=== PATIENT | female | born 1985 | race African-American/Black ===

== ENCOUNTER 2016-11-30 00:41 | Emergency (ER) | payer SELFPAY ==
[~2016-11-30] VITALS: Ht 165.1 cm; Wt 53.1 kg
[2016-11-30] MEDS ORDERED: IV D5LR 1,000 ML IV ONE (01:35)
[2016-11-30] MEDS ORDERED: DICYCLOMINE HCL 20 MG/2 ML AMPUL IM SCH (01:45)
[2016-11-30] MEDS ORDERED: ONDANSETRON 4 MG/2 ML VIAL IV ONE (01:45)
[2016-11-30] MEDS ORDERED: ONDANSETRON 4 MG/2 ML VIAL ONE (01:49)
[2016-11-30 02:03] LABS: CALCIUM 9.3 mg/dL (8.5-10.1); CREATININE 0.8 mg/dL (0.6-1.3); POTASSIUM 3.5 mmol/L (3.5-5.1)
[2016-11-30] MEDS ORDERED: LORAZEPAM 2 MG/1 ML VIAL IV ONE (02:15)
[2016-11-30] MEDS ORDERED: HYDROMORPHONE 1 MG/1 ML DISP.SYRIN IV ONE (02:15)
[2016-11-30] MEDS ORDERED: DICYCLOMINE HCL 10 MG/5 ML UDC LIQ PO ONE (02:15)
--- NOTE | 2016-11-30 02:18 | NUR ---
all meds administed/labs drawn-sent/iv fluids admistered, pt positioned for comfort.
[2016-11-30] MEDS ORDERED: HYDROMORPHONE 1 MG/1 ML DISP.SYRIN ONE (02:21)
[2016-11-30] MEDS ORDERED: LORAZEPAM 2 MG/1 ML VIAL ONE (02:21)
[2016-11-30] MEDS ORDERED: DICYCLOMINE HCL 10 MG/5 ML UDC LIQ ONE (02:22)
--- NOTE | 2016-11-30 03:01 | NUR ---
Patient discharged to home in stable conditon. Written and verbal after care instructions given. Patient verbalizes understanding of instructions.
== END 2016-11-30 03:12 | disposition home or self-care (01) ==
LOC: ER 00:46
DX: R11.2 Nausea with vomiting, unspecified (principal); R19.7 Diarrhea, unspecified; R10.9 Unspecified abdominal pain; Z88.1 Allergy status to other antibiotic agents
CPT/HCPCS: 36415; 80048; 83690; 84703; 96361; 96374; 96375; 99284; A4663; J1170; J2060; J2405; J3490